=== PATIENT | female | born 1965 | race Two or more races ===

== ENCOUNTER 2024-08-14 15:05 | Inpatient (IN) | payer MEDICAID, OTHER ==
[2024-08-14] VITALS (11 sets, daily range): BP systolic 106–143; BP diastolic 46–70; PULSE 87–109; RESP 12–20; TEMP 97.8–98.3; O2SAT 93–99
[~2024-08-14] VITALS: Ht 152.4 cm; Wt 72.7 kg
--- NOTE | 2024-08-14 15:21 | ED.PDOC ---
History of Present Illness HPI Comments 59F is vincentian speaking only,was BIBA by transfering from [facility] ordered by Doctor Calle for the c/c of CP. EMS report the pt going into the ER of [facility] at 930 this morning w/ the c/c of epigastric pain w/ N/V/D. The reason for the transfer was because the pt's seconds troponine was elevated but w/ no elevation in the EKG. Pt was given morphine before being sent out of [facility]. Pt's BS was 377, BP was 169/92 and a HR of 92. Pt is still complaining of epigastric pain, 02/18. PMHx of DM. Denies chills, fever, SOB or no other associated symptoms, modifiers, recent injuries or sick contacts at this time. Chief Complaint: STEMI Time Seen by MD: 15:15 Reviewed Notes: Nurses Notes, Medications, Allergies Information Source: Patient Mode of Arrival: EMS Severity: Moderate Timing: Minutes Duration: Since onset, Minutes Prehospital treatment: None Past Medical History PAST MEDICAL HISTORY: DM Surgical History: Denies all surgeries BRANCH CHIEF History: No Pertinent BRANCH CHIEF History Family History Family History: Reviewed,noncontributory to illness, Unknown Social History Smoker: Non-Smoker Alcohol: Denies ETOH Use Drugs: Denies Drug Use Lives In: Home Constitutional: denies: chills, diaphoresis, fatigue, fever, malaise, sweats, weakness, others EENTM: denies: blurred vision, double vision, ear bleeding, ear discharge, ear drainage, ear pain, ear ringing, eye pain, eye redness, hearing loss, mouth pain, mouth swelling, nasal discharge, nose bleeding, nose congestion, nose pain, photophobia, tearing, throat pain, throat swelling, voice changes, others Respiratory: denies: cough, hemoptysis, orthopnea, SOB at rest, shortness of breath, SOB with excertion, stridor, wheezing, others Cardiovascular: reports: chest pain; denies: dizzy spells, diaphoresis, Dyspnea on exertion, edema, irregular heart beat, left arm pain, lightheadedness, palpitations, PND, syncope, others Gastrointestinal: reports: diarrhea, nausea, vomiting; denies: abdomen distended, abdominal pain, blood streaked bowels, constipated, dysphagia, difficulty swallowing, hematemesis, melena, poor appetite, poor fluid intake, rectal bleeding, rectal pain, others Genitourinary: denies: abnormal vagina bleeding, burning, dyspareunia, dysuria, flank pain, frequency, hematuria, incontinence, pain, , vagina discharge, urgency, others Neurological: denies: dizziness, fainting, headache, left sided numbness, left sided weakness, numbness, paresthesia, pre-existing deficit, right sided numbness, right sided weakness, seizure, speech problems, tingling, tremors, weakness, others Musculoskeletal: denies: back pain, gout, joint pain, joint swelling, muscle pain, muscle stiffness, neck pain, others Integumetry: denies: bruises, change in color, change in hair/nails, dryness, laceration, lesions, lumps, rash, wounds, others Allergic/Immunocompromised: denies: Difficulty Healing, Frequent Infections, Hives, Itching, others Hematologic/Lymphatic: denies: anemia, blood clots, easy bleeding, easy bruising, swollen glands, others Endocrine: denies: excessive hunger, excessive sweating, excessive thirst, excessive urination, flushing, intolerance to cold, intolerance to heat, unexplained weight gain, unexplained weight loss, others Psychiatric: denies: anxiety, bipolar disorder, depression, hopeless, panic disorder, schizophrenia, sleepless, suicidal, others All Other Systems: Reviewed and Negative Physical Exam General Appearance: Moderate Distress, Normal HEENT: Normal ENT Inspection, Pharynx Normal, TMs Normal Neck: Full Range of Motion, Non-Tender, Normal, Normal Inspection Respiratory: Chest Non-Tender, Lungs Clear, No Accessory Muscle Use, No Respiratory Distress, Normal Breath Sounds Cardiovascular: No Edema, No JVD, No Murmur, No Gallop, Normal Peripheral Pulses, Regular Rate/Rhythm Breast Exam: Deferred Gastrointestinal: No Organomegaly, Non Tender, No Pulsatile Mass, Normal Bowel Sounds, Soft Genitalia: Deferred Pelvic: Deferred Rectal: Deferred Extremities: No calf tenderness, Normal capillary refill, Normal inspection, Normal range of motion, Non-tender, No pedal edema Musculoskeletal : Apperance: Normal Neurologic: Alert, car tester II-XII nml as Tested, No Motor Deficits, Normal Affect, Normal Mood, No Sensory Deficits Cerebellar Function: NOT DONE Reflexes: NOT DONE Skin: Dry, Normal Color, Warm Peripheral Pulses: 3+ Radial (R), 3+ Radial (L) Lymphatic: No Adenopathy Was a procedure done? Was a procedure done?: No Differential Dx Considerations may include: Chest pain Electrolyte imbalance X-Ray, Labs, Meds, VS Patient alert. Complaining of chest pain. Was transferred from [facility]. Vitals stable. She is on heparin. EKG does show changes. Spoke with Cardiology. She will be taken to laborer cook house. Explained to the patient. Continue monitoring. Time of 1ST Reevaluation: 15:45 Reevaluation 1ST: Unchanged Patient Education/Counseling: Diagnosis, Treatment, Prognosis Family Education/Counseling: No Family Present Departure 1 Departure Time of Disposition: 15:23 Impression: Primary Impression: STEMI (ST elevation myocardial infarction) Qualified Codes: I21.3 - ST elevation (STEMI) myocardial infarction of unspecified site Disposition: ADMITTED INPATIENT Admit to: Med Surg Condition: Guarded Critical Care Note Critical Care Time?: Yes (45 min-critical care time only) Stability Stability form required: No Heart Score Heart Score: Heart Score Response (Comments) Value History Highly Suspicious [address]-Deviation 2 Age 45-64 1 Risk Factors >3 or Hx ASHD 2 Troponin N/A 0 Total 7 I personally scribed for PRABHU PERKINS MD ([email or web address]) on 08/14/24 at 15:21. Electronically submitted by Christopher Sanchez ([email or web address]). PRABHU PERKINS MD Aug 14, 2024 15:21
[2024-08-14] MEDS ORDERED: MORPHINE SULFATE INJ 2 MG/ml SYRG IV PRN (15:30)
[2024-08-14] MEDS ORDERED: ASPirin 81 mg TAB PO ONE (15:30)
[2024-08-14] MEDS ORDERED: ACETAMINOPHEN 325 MG TAB PO PRN ×2 (15:30→17:30)
[2024-08-14] MEDS ORDERED: NITROGLYCERIN 0.4 MG SL TAB SL PRN ×2 (15:30→17:30)
[2024-08-14] MEDS: VERAPAMIL 2.5MG/ML INJ 2ML VIAL IV ONE (15:36)
[2024-08-14] MEDS: ANGIOMAX 250 MG VIAL IV ONE ×2 (15:36→16:56)
[2024-08-14] MEDS: HEPARIN SODIUM (PORCINE) 5000 UNITS/ML 1ML VIAL ONE (15:36)
[2024-08-14] MEDS: fentaNYL CITRATE 100 MCG/2 ML VL ONE (15:36)
--- NOTE | 2024-08-14 15:36 | DVHHP2 ---
History of Present Illness Reason for Visit: STEMI History of Present Illness This is a 59-year-old female with no medical history presents to ED with chief complaint of 8/10 chest pain with radiation down her arm and jaw numbness that started yesterday progressively worse today. The patient denied recent injury or trauma to her chest. The patient had no previous symptoms of this in the past, nor any cardiac workup. She reports otherwise healthy individual. The patient will be admitted under hospitalist care to the telemetry unit for continuous monitoring, may be upgraded to ICU if unstable. The patient denies fever, chills, headache, dizziness, palpitation, shortness of breath, nausea, vomiting, abdominal pain, diarrhea, constipation and other associated symptoms. The plan has been discussed with the patient and primary RN in which all questions concerns have been addressed. Past Surgical History: Cholecystectomy Family History: None Smoke: No ALCOHOL: none Drugs: None Lives: with Family Domestic Violence: Neg Review of Systems Cardiovascular: Chest Pain Allergies: Coded Allergies: NO KNOWN ALLERGIES (Unverified , 08/14/24) Exam Vital Signs Vital Signs Date Time Temp Pulse Resp B/P (MAP) Pulse Ox O2 Delivery O2 Flow Rate FiO2 08/14/24 15:24 97.8 12 94 157/84 (108) 94 97.8 General Appearance: Alert, Oriented X3, Cooperative, mild distress HEENT: Atraumatic, PERRLA, Mucous membr. moist/pink Respiratory: Clear to auscultation, Normal air movement Cardiovascular: Normal S1, Normal S2, No murmurs Abdominal: Normal bowel sounds, Soft, No tenderness, No hepatospenomegaly, No masses Extremities: No clubbing, No cyanosis, No edema, Normal pulses, No tenderness/swelling Skin: No rashes, No breakdown Neuro: Normal gait, Normal speech, Strength at 5/5 X4 ext, Normal tone, S ensation intact, Cranial nerves 3-12 NL, Reflexes 2+ Psych/Mental Status: Mental status NL, Mood NL Labs/Xrays ORDERING PHYSICIAN: PRABHU PERKINS MD PROCEDURE(s): CXRP - CHEST PORTABLE REASON: sob ORDER NUMBER(s): [id number], ACCESSION NUMBER(s): [id number] CHEST RADIOGRAPH Indication: sob Technique: Single frontal view of the chest was obtained Comparison: None FINDINGS: Lines and Tubes: None Lungs: No focal consolidation. Pleura: No effusion. No pneumothorax. Cardiomediastinal contours: Unremarkable Bones: No acute osseous abnormality. IMPRESSION: No acute cardiopulmonary disease. 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 Riley Reconcile home meds DVT prophylaxis PUD prophylaxis Labs in a.m. Discussed plan of care with the patient and primary RN in which all questions concerns have been addressed Plan discussed with: Patient My Orders Orders - WILLARD CHOWDARY OPTOMETRY DOCTOR Procedure Category Date Status Time Aspirin Tablet PHA 08/15/24 Transmitted 10:00 Admit ADMIT 08/14/24 Transmitted 15:27 0.9% Ns 1000 Ml PHA 08/14/24 Transmitted 15:30 Ondansetron Hcl PHA 08/14/24 Transmitted (Zofran) 15:30 Npo (Nothing By DIET 08/14/24 Transmitted Mouth) Diet Dinner Condition: Serious JUNIOR 08/14/24 Transmitted 15:27 Acetaminophen Tablet PHA 08/14/24 Transmitted (Tylenol Tablet) 15:30 Bedrest With Bathroom JUNIOR 08/14/24 Transmitted Privileg 15:27 Nitroglycerin PHA 08/14/24 Transmitted Sublingual (Ntrostat 15:30 Morphine Sulfate PHA 08/14/24 Transmitted Injection 15:30 Stat Ekg For Chest JUNIOR 08/14/24 Transmitted Pain 15:27 Notify Md Of Changes JUNIOR 08/14/24 Transmitted From Base 15:27 Product Advisor For JUNIOR 08/14/24 Transmitted 24 Hours 15:27 Emergency Dysrhythmia JUNIOR 4/5/25 Transmitted Protocol 15:27 Rhythm Strips Once JUNIOR 08/14/24 Transmitted Every Shift 15:27 Oxygen By Nasal RT 08/14/24 Transmitted Cannula 15:27 Date of Service: Aug 14, 2024 Billing Provider: WILLARD CHOWDARY Common Visit Codes: [id number] INP/OBS CARE (HIGH) WILLARD CHOWDARY Aug 14, 2024 15:36
[2024-08-14] MEDS: IODIXANOL 320MG/ML 100ML BTL IV ONE ×2 (15:37→16:38)
[2024-08-14] MEDS: SODIUM CHL 0.9% 50 ML ONE ×3 (15:37→16:57)
[2024-08-14] MEDS: LIDOCAINE 2%HCL (LOCAL ANESTH.) INJ 20ML MDV ONE (15:37)
[2024-08-14] MEDS: HEPARIN IN NS 1000Units/500mL 1,500 ML ONE (15:37)
[2024-08-14] MEDS: MIDAZOLAM HCL 2MG/2ML 2ml VIAL (1mg/ml) ONE (15:37)
--- NOTE | 2024-08-14 15:52 | DVH ---
CHEST RADIOGRAPH Indication: sob Technique: Single frontal view of the chest was obtained Comparison: None FINDINGS: Lines and Tubes: None Lungs: No focal consolidation. Pleura: No effusion. No pneumothorax. Cardiomediastinal contours: Unremarkable Bones: No acute osseous abnormality. IMPRESSION: No acute cardiopulmonary disease.
[2024-08-14 15:54] LABS: Hemoglobin 17.5 g/dL (12.2-16.2); Mean Corpuscular Hemoglobin 29.7 pg (28.0-32.0); White Blood Cell 18.3 10^3/uL (4.4-10.8)
[2024-08-14 15:55] LABS: Hematocrit 53.5 % (36.0-46.0); Mean Corpuscular Hgb Conc. 32.8 g/dL (32.0-36.0); Mean Corpuscular Volume 90.6 fL (80.0-100.0); Platelet Count (auto) 269 10^3/uL (140-450); Red Cell Distribution Width 13.2 % (11.8-14.3)
[2024-08-14 15:56] LABS: Basophils % (manual) 0 (0.0-2.0); Blast Cells 0; Eosinophils % (manual) 0 (0-7); Metamyelocytes % 0; Myelocytes % 0; Promyelocytes % 0; Reactive Lymphocytes 0
[2024-08-14 15:58] LABS: Anion Gap 22 (5-15); BUN/Creatinine Ratio 14.8 (10.0-20.0); Blood Urea Nitrogen 12 mg/dL (9-23); Calcium 9.9 mg/dL (8.7-10.4); Chloride 100 mmol/L (98-107); Magnesium 2.1 mg/dL (1.6-2.6); Potassium 4.2 mmol/L (3.5-5.1); Sodium 137 mmol/L (136-145)
[2024-08-14 15:59] LABS: Bilirubin, Total 0.8 mg/dL (0.2-1.0)
[2024-08-14 16:09] LABS: INR 1.18 (0.9-1.15); Prothrombin Time 12.3 sec (9.3-11.8)
[2024-08-14] MEDS: EPTIFIBATIDE INJ (2MG/ML) 10ML VIAL IV ONE (16:14)
[2024-08-14] MEDS: niCARdipine 25 MG/10 ML VIAL IV ONE (16:14)
[2024-08-14 16:24] LABS: Alanine Aminotransferase 56 U/L (7-40); Albumin 4.9 g/dL (3.2-4.8); Alkaline Phosphatase 128 U/L (46-116); Aspartate Aminotransferase 124 U/L (13-40); Carbon Dioxide 15 mmol/L (20-31); Partial Thromboplastin Time 87.9 SEC (24.5-34.5); Total Protein 8.3 g/dL (5.7-8.2)
[2024-08-14 16:25] LABS: Glucose 402 mg/dL (74-106)
[2024-08-14 16:52] LABS: Band Neutrophils % (manual) 2; Large Platelets FEW; Lymphocytes % (manual) 2 (10.0-50.0); Monocytes % (manual) 4 (0-12); Platelet Estimate Adequa
[2024-08-14] MEDS: CLOPIDOGREL BISULFATE 75 MG TAB ONE ×2 (17:02→17:11)
[2024-08-14] MEDS ORDERED: ASPirin 325 MG TAB PO ONE (17:30)
[2024-08-14] MEDS ORDERED: CLOPIDOGREL BISULFATE 75 MG TAB PO ONE (17:30)
[2024-08-14] MEDS ORDERED: DEXTROSE (50%) 50ML SYRG IV PRN (17:45)
[2024-08-14] MEDS ORDERED: InsuLIN REG 1unit/0.01ml Soln (100units/ml) SC SCH (18:00)
[2024-08-14 18:06] LABS: Basophils # (auto) 0 10 ^3/uL (0-0.2); Basophils % (auto) 0.2 % (0.0-2.0); Eosinophils # (auto) 0 10 ^3/uL (0-0.8); Hematocrit 51.8 % (36.0-46.0); Hemoglobin 17.1 g/dL (12.2-16.2); Mean Corpuscular Hemoglobin 30.4 pg (28.0-32.0); Mean Corpuscular Volume 92.2 fL (80.0-100.0); Monocytes # (auto) 0.9 10 ^3/uL (0-1.3); Monocytes % (auto) 4.9 % (0.0-12.0); Neutrophils # (auto) 17.5 10 ^3/uL (1.6-8.6); Neutrophils % (auto) 89.9 % (37.0-80.0); Platelet Count (auto) 250 10^3/uL (140-450); Red Blood Cells 5.61 10^6/uL (4.0-5.20); Red Cell Distribution Width 13.6 % (11.8-14.3); White Blood Cell 19.5 10^3/uL (4.4-10.8)
[2024-08-14 18:32] LABS: Albumin 4.7 g/dL (3.2-4.8); Anion Gap 19 (5-15); BUN/Creatinine Ratio 14.1 (10.0-20.0); Blood Urea Nitrogen 13 mg/dL (9-23); Calcium 9.6 mg/dL (8.7-10.4); Chloride 100 mmol/L (98-107); Potassium 4.2 mmol/L (3.5-5.1); Triglycerides 61 mg/dL (< 150)
[2024-08-14 18:33] LABS: Bilirubin, Total 0.6 mg/dL (0.2-1.0)
[2024-08-14 18:34] LABS: Alanine Aminotransferase 58 U/L (7-40); Alkaline Phosphatase 126 U/L (46-116); Aspartate Aminotransferase 146 U/L (13-40); Carbon Dioxide 14 mmol/L (20-31); Cholesterol 221 mg/dL (< 200); Glucose 387 mg/dL (74-106); HDL Cholesterol 63 mg/dL (40-59); LDL Cholesterol 149 mg/dL (< 100); Sodium 133 mmol/L (136-145)
--- NOTE | 2024-08-14 18:44 | DVHOP ---
DATE OF SURGERY: 08/14/2024 TECHNIQUE PERFORMED: * Code STEMI. * Insertion of a 6-Beninese arterial line from the right femoral artery under fluoroscopy. * Left coronary angiography. * Mechanical thrombectomy of the left anterior descending artery and diagonal artery with Everton catheter. * Balloon angioplasty of the diagonal artery with a 2.5 x 10 mm length semi-compliant balloon. * Stenting and angioplasty of the large diagonal artery with a 2.75 x 12 mm length Lottie [place] stent of [employer] and measured stent up to 2.85 mm in size. * Balloon angioplasty of the left anterior descending artery with 2.5 x 12 mm length semi-compliant balloon in mid artery up to 2.75 mm in size. * Intravascular ultrasound of the left main and also of the left anterior descending artery. * Intraarterial administration of the Integrilin 10 mL bolus. * Right iliofemoral artery angiography. * Arteriotomy, Angio-Seal of the right femoral artery and the management of conscious sedation. COMPLICATIONS: None. ASSISTANTS: Assisted by Marques. Other assistants are Pita Zaragoza, and Lilia. INDICATIONS: The patient has an acute anterior wall myocardial infarction, code STEMI. DESCRIPTION OF PROCEDURE: Risks, benefits all have been explained to the patient, who was brought to stucco laborer. A 6-Beninese arterial line was placed in a standard manner. The patient was given IV Versed and fentanyl. XB 3.0, 6-Beninese guiding catheter was passed. Runthrough wire was passed, which went into the diagonal artery and mechanical thrombectomy was done with the help of the Everton catheter. Subsequently, we have done the angiography and diagonal artery is open, left anterior descending artery is now open. Subsequently, we also put a wire in the [place] left anterior descending artery. The wire also remained also in the diagonal artery. Subsequently, we put a balloon 2.5 x 10 mm length semi-compliant balloon, inflated in the diagonal artery, taken up to the 17 atmospheres and subsequently balloon was deflated and now we have put a stent, a 2.75 x 12 mm length Lottie [place] drug-eluting stent of [employer] and has been deployed from the origin of the diagonal artery and also slightly involving the left anterior descending artery and stent had been deployed a total of 17 atmospheres. Stent size was made up to 2.85 mm in size, inflated for 31 seconds, subsequently for 15 seconds. Balloon had been discontinued. Subsequently, now we have also noted at the left anterior descending artery the site of the bifurcation had been pinched, so now we have put a balloon in the left anterior descending artery and have opened up with a 2.5 x 12 mm length, semi-compliant balloon and inflated over there for about 15 seconds. The size of the artery was made to 2.75 mm in size. Balloon deflated, balloon had been discontinued. Angiography done. Result was satisfactory. Subsequently, we also have now done intravascular ultrasound. Intravascular ultrasound was done and which has confirmed that there is no dissection, there is no critical stenosis in left anterior descending artery and the lumen is open and stenosis in the left anterior descending artery is in the range of only 20%. Now, we have taken both the wire and we did angiography. Result is satisfactory without any complication. Now, subsequently we also did a right iliofemoral artery angiography, arteriotomy, Angio-Seal also done. Prior to doing this one, we have given her 10 mL of Integrilin bolus also and the patient is now completely symptom free, hemodynamically stable. CONCLUSION: * Prior to performing the procedure, the left anterior descending artery was 100% acutely occluded at its mid region, MOE grade 0 flow. Post-procedure, MOE grade 3 flow. * Diagonal artery was 100% blocked. It had MOE grade flow. Post-procedure, MOE grade 3 flow, residual stenosis is 0%. The stent is widely open. * The [place] left anterior descending artery was 100% blocked prior to performing the procedure, MOE grade 0 flow. Post-procedure, MOE grade 3 flow and residual stenosis is 20%. * No spasm, no dissection, no thrombosis. Procedure went well. Please also note that the right coronary artery is a very large dominant artery. PLAN OF ACTION: Advised for the Plavix 600 mg loading dose, aspirin, beta-juan, cholesterol-reducing medicine and control of blood sugar. Jaime Calle MD MP/JESUS/DELMI TID: [id number] RECEIPT: [id number] MTD
--- NOTE | 2024-08-14 19:18 | DVHOP ---
DATE OF SURGERY: 08/14/2024 TECHNIQUE PERFORMED: * Code STEMI. * Insertion of a 6-Finnish arterial line in the right femoral artery under fluoroscopy. * Left heart catheterization. * Left ventriculogram. * [place] selective left and right coronary angiography. COMPLICATIONS: None. ASSISTANTS: Assisted by Marques. Other assistants are Mila Lema, and Lilia. INDICATIONS: The patient has an acute anterior wall myocardial infarction. The patient has been transferred from [facility] in [place], [place] because the troponin was quite high, patient having severe epigastric pain. Procedure was eventually discussed. DESCRIPTION OF PROCEDURE: In a standard manner, the patient had been explained the indications, risks, benefits and alternatives of treatment and has been brought over here. The patient's right groin was shaved and was cleaned with soap and Betadine. A 6-Finnish arterial line had been placed under fluoroscopy in a standard manner. Subsequently, we have put a JR4 catheter and the right coronary angio done. Subsequently, at the end of the procedure, we also did a left heart catheterization and left ventriculogram. We have also done a left coronary angiography with the help of the XB 3.0, 6-Finnish guiding catheter. IMPRESSION: * There is a normal left main. * Left anterior descending artery 100% occluded at its mid region. MOE grade 0 flow. Diagonal artery also has been absent. * The patient's circumflex obtuse marginal artery is a moderate size, mild stenosis is noted in the distal circumflex artery. * The right coronary artery is a large luminal artery. Posterior descending artery also has underlying 50% narrowing at its origin. * Ejection fraction 55%. There is some hypokinesis of the entire anterior apical wall. PLAN OF ACTION: At this time, the patient is advised to undergo the intervention on the left anterior descending artery. Jaime Calle MD MP/ED/CURTIS TID: [id number] RECEIPT: [id number] MTDD
[2024-08-14] MEDS: ONDANSETRON HCL 4 MG/2 ML VIAL IV PRN (19:58)
[2024-08-14] MEDS: HYDROcodone-ACET 7.5/325MG TAB PO ONE (20:45)
[2024-08-14] MEDS: ACCU-CHEK COMFORT CURVE STRIP VI SCH (20:52)
[2024-08-14] MEDS: SODIUM CHLORIDE 0.9% 1,000 ML IV SCH (20:52)
[2024-08-14] MEDS: SODIUM CHLOR 0.9% PF (SALINE LOCK) 10ML VIAL/SYR IV SCH (20:53)
[2024-08-14] MEDS: ATORVASTATIN 20 MG TAB PO SCH (21:10)
[2024-08-14] MEDS: INSULIN LANTUS (GLARGINE) 1 /0.01ml (100units/ml) SC SCH (21:12)
[2024-08-14] MEDS: INSULIN LISPRO (HUMAN) 100 UNITS/ML ML SC SCH (21:16)
[2024-08-14 21:17] LABS: Hematocrit 47.3 % (36.0-46.0); Hemoglobin 15.9 g/dL (12.2-16.2)
[2024-08-14] MEDS: METOPROLOL TARTRATE 25 MG TAB PO SCH (21:23)
[2024-08-14 21:33] LABS: INR 1.18 (0.9-1.15); Partial Thromboplastin Time 38.7 SEC (24.5-34.5); Prothrombin Time 12.3 sec (9.3-11.8)
--- NOTE | 2024-08-14 23:52 | DVHINCON2 ---
Date of service: Aug 14, 2024 Referring Physician Julian Reason for Consultation STEMI History of Present Illness This is a 59 year old Greek speaking female with a PMH of pre DM who was transferred to here by ambulance from [facility] for STEMI. Patient initially had complaints of upper abdominal pain with nausea and vomiting that began 2 days ago. Troponin was elevated x 2. EKG from [facility] showed NSR at 89 bpm, ST deviation and moderate T-wave abnormality, consider lateral ischemia. Chest x-ray showed NAD. Patient on heparin. Patient will be emergently taken to the [facility]. Allergies: Coded Allergies: NO KNOWN ALLERGIES (Unverified , 08/14/24) Current Medications Current Medications Medications (Trade) Dose Ordered Sig/John Route PRN Reason Start Time Stop Time Status Last Admin Aspirin 81 mg DAILY PO 08/15/24 10:00 08/14/24 17:41 DC Sodium Chloride 1,000 ml @ 100 mls/hr Q10H IV 08/14/24 15:30 08/14/24 20:52 Ondansetron HCl (Zofran) 4 mg Q4HP PRN IV NAUSEA / VOMITING 08/14/24 15:30 08/14/24 19:58 Acetaminophen (Tylenol Tablet) 650 mg Q6HP PRN PO PAIN SCALE 1-3 OR TEMP>100.4 08/14/24 15:30 08/14/24 17:41 DC Nitroglycerin (Ntrostat Sublingual) 0.4 mg Q5MINP PRN SL FOR CHEST PAIN 08/14/24 15:30 08/14/24 17:41 DC Morphine Sulfate 2 mg Q30M PRN IV FOR CHEST PAIN 08/14/24 15:30 08/14/24 17:41 DC Sodium Chloride (Saline Lock Ns) 10 ml Q8HR IV 08/14/24 22:00 08/14/24 20:53 Nitroglycerin (Ntrostat Sublingual) 0.4 mg Q5M PRN SL FOR CHEST PAIN 08/14/24 17:30 Metoprolol Tartrate (Lopressor Tablet) 25 mg BID PO 08/14/24 22:00 08/14/24 21:23 Aspirin 81 mg DAILY PO 08/16/24 10:00 Clopidogrel Bisulfate (Plavix) 75 mg DAILY PO 08/16/24 10:00 Enalapril Maleate (Vasotec Tablet) 2.5 mg DAILY PO 08/15/24 10:00 Atorvastatin Calcium (Lipitor) 80 mg HS PO 08/14/24 22:00 08/14/24 21:10 Acetaminophen (Tylenol Tablet) 650 mg Q6HP PRN PO MILD PAIN (1-3 PAIN SCALE) 08/14/24 17:30 Diagnostic Test (Pha) (Accu-Chek Comfort Curve T) 1 strip Q6HR 08/14/24 18:00 08/14/24 20:52 Insulin Human Regular (InsuLIN R) Q6HR SC 08/14/24 18:00 08/14/24 18:23 DC Dextrose 50 ml UD PRN IV Blood Sugar LESS THAN 60 08/14/24 17:45 Insulin Human Lispro (HumaLOG) 4 units AC SC 08/15/24 07:00 Insulin Glargine (Lantus) 10 units HS SC 08/14/24 22:00 08/14/24 21:12 Insulin Human Lispro (HumaLOG) Please change to Humalog Q6HR [place] 08/14/24 18:30 08/14/24 21:16 Review of Systems Constitutional: denies: chills, diaphoresis, fatigue, fever, malaise, sweats, weakness, others EENTM: denies: blurred vision, double vision, ear bleeding, ear discharge, ear drainage, ear pain, ear ringing, eye pain, eye redness, hearing loss, mouth pain, mouth swelling, nasal discharge, nose bleeding, nose congestion, nose pain, photophobia, tearing, throat pain, throat swelling, voice changes, others Respiratory: denies: cough, hemoptysis, orthopnea, SOB at rest, shortness of breath, SOB with excertion, stridor, wheezing, others Cardiovascular: reports: chest pain; denies: dizzy spells, diaphoresis, Dyspnea on exertion, edema, irregular heart beat, left arm pain, lightheadedness, palpitations, PND, syncope, others Gastrointestinal: reports: diarrhea, nausea, vomiting; denies: abdomen distended, abdominal pain, blood streaked bowels, constipated, dysphagia, difficulty swallowing, hematemesis, melena, poor appetite, poor fluid intake, rectal bleeding, rectal pain, others Genitourinary: denies: abnormal vagina bleeding, burning, dyspareunia, dysuria, flank pain, frequency, hematuria, incontinence, pain, , vagina discharge, urgency, others Neurological: denies: dizziness, fainting, headache, left sided numbness, left sided weakness, numbness, paresthesia, pre-existing deficit, right sided numbness, right sided weakness, seizure, speech problems, tingling, tremors, weakness, others Musculoskeletal: denies: back pain, gout, joint pain, joint swelling, muscle pain, muscle stiffness, neck pain, others Integumetry: denies: bruises, change in color, change in hair/nails, dryness, laceration, lesions, lumps, rash, wounds, others Allergic/Immunocompromised: denies: Difficulty Healing, Frequent Infections, Hives, Itching, others Hematologic/Lymphatic: denies: anemia, blood clots, easy bleeding, easy bruising, swollen glands, others Endocrine: denies: excessive hunger, excessive sweating, excessive thirst, excessive urination, flushing, intolerance to cold, intolerance to heat, unexplained weight gain, unexplained weight loss, others Psychiatric: denies: anxiety, bipolar disorder, depression, hopeless, panic disorder, schizophrenia, sleepless, suicidal, others All Other Systems: Reviewed and Negative Vital Signs Vital Signs Date Time Temp Pulse Resp B/P (MAP) Pulse Ox O2 Delivery O2 Flow Rate FiO2 08/14/24 21:23 107 132/65 08/14/24 18:35 98.3 18 93 98.3 08/14/24 15:29 Room Air* 0 21 Physical Exam GENERAL: Alert and oriented x 3. No acute distress. EYES: PERRL, EOMI. Anicteric. HENT: Moist mucous membranes. LUNGS: Clear to auscultation bilaterally. CARDIOVASCULAR: Regular rate and rhythm. ABDOMEN: Soft, nontender and nondistended. EXTREMITIES: No edema. NEUROLOGIC: No focal neurological deficits. SKIN: Warm, dry. Labs/Diagnostic Data Labs Test 08/14/24 21:03 08/14/24 20:55 08/14/24 17:54 08/14/24 15:16 Range/Units Hemoglobin 15.9 12.2-16.2 g/dL Hematocrit 47.3 H 36.0-46.0 % Prothrombin Time 12.3 H 9.3-11.8 sec Prothrombin Time INR 1.18 H 0.9-1.15 Activated Partial Thromboplast Time 38.7 H 24.5-34.5 SEC POC Glucose 438 *H 70-106 mg/dl White Blood Count 19.5 H 4.4-10.8 10^3/uL Red Blood Count 5.61 H 4.0-5.20 10^6/uL Mean Corpuscular Volume 92.2 80.0-100.0 fL Mean Corpuscular Hemoglobin 30.4 28.0-32.0 pg Mean Corpuscular Hemoglobin Concent 33.0 32.0-36.0 g/dL Red Cell Distribution Width 13.6 11.8-14.3 % Platelet Count 250 140-450 10^3/uL Mean Platelet Volume 9.0 6.9-10.8 fL Neutrophils (%) (Auto) 89.9 H 37.0-80.0 % Lymphocytes (%) (Auto) 5.0 L 10.0-50.0 % Monocytes (%) (Auto) 4.9 0.0-12.0 % Eosinophils (%) (Auto) 0.0 0.0-7.0 % Basophils (%) (Auto) 0.2 0.0-2.0 % Neutrophils # (Auto) 17.5 H 1.6-8.6 10 ^3/uL Lymphocytes # (Auto) 1.0 0.4-5.4 10 ^3/uL Monocytes # (Auto) 0.9 0-1.3 10 ^3/uL Eosinophils # (Auto) 0 0-0.8 10 ^3/uL Basophils # (Auto) 0 0-0.2 10 ^3/uL Nucleated Red Blood Cells 0.0 % Sodium Level 133 L 136-145 mmol/L Potassium Level 4.2 3.5-5.1 mmol/L Chloride Level 100 98-107 mmol/L Carbon Dioxide Level 14 L 20-31 mmol/L Anion Gap 19 H 5-15 Blood Urea Nitrogen 13 9-23 mg/dL Creatinine 0.92 0.550-1.02 mg/dL Glomerular Filtration Rate Calc 71 >90 mL/min BUN/Creatinine Ratio 14.1 10.0-20.0 Serum Glucose 387 H 74-106 mg/dL Hemoglobin A1c > 14.0 H <5.7 % A1C Calcium Level 9.6 8.7-10.4 mg/dL Magnesium Level 2.0 1.6-2.6 mg/dL Total Bilirubin 0.6 0.2-1.0 mg/dL Aspartate Amino Transferase (AST) 146 H 13-40 U/L Alanine Aminotransferase (ALT) 58 H 7-40 U/L Alkaline Phosphatase 126 H 46-116 U/L Troponin I High Sensitivity 82399 *H </=34 ng/L Total Protein 8.0 5.7-8.2 g/dL Albumin 4.7 3.2-4.8 g/dL Triglycerides Level 61 < 150 mg/dL Cholesterol Level 221 H < 200 mg/dL LDL Cholesterol 149 H < 100 mg/dL HDL Cholesterol 63 H 40-59 mg/dL Differential Total Cells Counted 100.0 100 Neutrophils % (Manual) 92 H 37.0-80.0 Band Neutrophils % (Manual) 2 Lymphocytes % (Manual) 2 L 10.0-50.0 Monocytes % (Manual) 4 0-12 Eosinophils % (Manual) 0 0-7 Basophils % (Manual) 0 0.0-2.0 Metamyelocytes % (manual) 0 Myelocytes % (Manual) 0 Promyelocytes % (Manual) 0 Blast Cells % (Manual) 0 Reactive Lymphocytes 0 Platelet Estimate [place] Large Platelets Few Assessment STEMI. Chest pain. CAD. Pulmonary arterial hypertension. Abdominal pain with nausea and vomiting. IDDM. Plan/Recommendation I agree with your ongoing assessment and care of plan. Telemetry reviewed. Left heart catheterization. Risks and benefits were discussed with the patient. Echocardiogram. Aspirin, Lipitor, Plavix, Metoprolol. Vasotec Nitro SL. Additional plan as per the hospital course. A total of 45 minutes was spent reviewing the patient record, examining the patient, making a diagnostic and therapeutic plan, discussing this plan with medical personnel, following up on diagnostic studies and following the patient for clinical stability excluding any and all procedures. At least 50% of this time was spent in direct, [id number] contact. Plan discussed with: Patient MARIEL MERLOS MD Aug 14, 2024 21:51
[2024-08-15] VITALS (8 sets, daily range): BP systolic 103–137; BP diastolic 50–65; PULSE 89–99; RESP 15–18; TEMP 97.8–99.3; O2SAT 92–97
[2024-08-15] MEDS: INSULIN LISPRO (HUMAN) 100 UNITS/ML ML SC SCH ×3 (07:00→17:11)
[2024-08-15] MEDS ORDERED: ASPirin 81 mg TAB PO SCH (10:00)
[2024-08-15] MEDS: ENALAPRIL MALEATE 2.5 MG TAB PO SCH (10:06)
--- NOTE | 2024-08-15 11:56 | DVHINCON2 ---
Date of service: Aug 15, 2024 History of Present Illness 59yo F w/ hx of preDM, CAD who presented to [facility] for STEMI. Patient had been experiencing nause and ab pain 2 days prior to presentation. Patient underwent thrombectomy of diagonal PTCA of diagonal, stent deployed in diagonal, PTCA of LAD IV US. Since then has been maintained on dual antiplatelet therapy. Patient had significant hyperglycemia upon admission to 400mg/dL. A1c > 14%. No antihyperglycemic pharmacotherapy at home. Past Medical History Problems Medical Problems: (1) STEMI (ST elevation myocardial infarction) Status: Acute Past Surgical History Past Surgical History Medical Problems: (1) STEMI (ST elevation myocardial infarction) Status: Acute Family History: Cardiovascular disease G8 MOTHER Allergies: Coded Allergies: NO KNOWN ALLERGIES (Unverified , 08/14/24) Home Meds No Active Prescriptions or Reported Meds Current Medications Current Medications Medications (Trade) Dose Ordered Sig/John Route PRN Reason Start Time Stop Time Status Last Admin Aspirin 81 mg DAILY PO 08/15/24 10:00 08/14/24 17:41 DC Sodium Chloride 1,000 ml @ 100 mls/hr Q10H IV 08/14/24 15:30 08/15/24 11:40 Ondansetron HCl (Zofran) 4 mg Q4HP PRN IV NAUSEA / VOMITING 08/14/24 15:30 08/14/24 19:58 Acetaminophen (Tylenol Tablet) 650 mg Q6HP PRN PO PAIN SCALE 1-3 OR TEMP>100.4 08/14/24 15:30 08/14/24 17:41 DC Nitroglycerin (Ntrostat Sublingual) 0.4 mg Q5MINP PRN SL FOR CHEST PAIN 08/14/24 15:30 08/14/24 17:41 DC Morphine Sulfate 2 mg Q30M PRN IV FOR CHEST PAIN 08/14/24 15:30 08/14/24 17:41 DC Sodium Chloride (Saline Lock Ns) 10 ml Q8HR IV 08/14/24 22:00 08/15/24 06:15 Nitroglycerin (Ntrostat Sublingual) 0.4 mg Q5M PRN SL FOR CHEST PAIN 08/14/24 17:30 Metoprolol Tartrate (Lopressor Tablet) 25 mg BID PO 08/14/24 22:00 08/15/24 10:07 Aspirin 81 mg DAILY PO 08/16/24 10:00 Clopidogrel Bisulfate (Plavix) 75 mg DAILY PO 08/16/24 10:00 Enalapril Maleate (Vasotec Tablet) 2.5 mg DAILY PO 08/15/24 10:00 08/15/24 10:06 Atorvastatin Calcium (Lipitor) 80 mg HS PO 08/14/24 22:00 08/15/24 11:35 DC 08/14/24 21:10 Acetaminophen (Tylenol Tablet) 650 mg Q6HP PRN PO MILD PAIN (1-3 PAIN SCALE) 08/14/24 17:30 Diagnostic Test (Pha) (Accu-Chek Comfort Curve T) 1 strip Q6HR 08/14/24 18:00 08/15/24 11:40 Insulin Human Regular (InsuLIN R) Q6HR SC 08/14/24 18:00 08/14/24 18:23 DC Dextrose 50 ml UD PRN IV Blood Sugar LESS THAN 60 08/14/24 17:45 Insulin Human Lispro (HumaLOG) 4 units AC SC 08/15/24 07:00 08/15/24 11:44 Insulin Glargine (Lantus) 10 units HS SC 08/14/24 22:00 08/14/24 21:12 Insulin Human Lispro (HumaLOG) Please change to Humalog Q6HR SC 08/14/24 18:30 08/15/24 11:43 Ceftriaxone Sodium 50 ml @ 100 mls/hr DAILY@09 IV 08/15/24 13:00 Atorvastatin Calcium (Lipitor) 40 mg HS PO 08/15/24 22:00 Review of Systems Negative except that which is stated in HPI Vital Signs Vital Signs Date Time Temp Pulse Resp B/P (MAP) Pulse Ox O2 Delivery O2 Flow Rate FiO2 08/15/24 10:07 97 157/62 08/15/24 09:00 98.8 15 93 98.8 08/15/24 08:00 Room Air* 0 21 Physical Exam Gen - no acute distress HEENT - no thyromegaly CV - RRR, no m/r/g Resp - CTAB, no wheezes/crackles Ext - no edema Labs/Diagnostic Data Labs Test 08/15/24 11:09 08/14/24 21:03 08/14/24 17:54 08/14/24 15:16 Range/Units POC Glucose 284 H 70-106 mg/dl Hemoglobin 15.9 12.2-16.2 g/dL Hematocrit 47.3 H 36.0-46.0 % Prothrombin Time 12.3 H 9.3-11.8 sec Prothrombin Time INR 1.18 H 0.9-1.15 Activated Partial Thromboplast Time 38.7 H 24.5-34.5 SEC White Blood Count 19.5 H 4.4-10.8 10^3/uL Red Blood Count 5.61 H 4.0-5.20 10^6/uL Mean Corpuscular Volume 92.2 80.0-100.0 fL Mean Corpuscular Hemoglobin 30.4 28.0-32.0 pg Mean Corpuscular Hemoglobin Concent 33.0 32.0-36.0 g/dL Red Cell Distribution Width 13.6 11.8-14.3 % Platelet Count 250 140-450 10^3/uL Mean Platelet Volume 9.0 6.9-10.8 fL Neutrophils (%) (Auto) 89.9 H 37.0-80.0 % Lymphocytes (%) (Auto) 5.0 L 10.0-50.0 % Monocytes (%) (Auto) 4.9 0.0-12.0 % Eosinophils (%) (Auto) 0.0 0.0-7.0 % Basophils (%) (Auto) 0.2 0.0-2.0 % Neutrophils # (Auto) 17.5 H 1.6-8.6 10 ^3/uL Lymphocytes # (Auto) 1.0 0.4-5.4 10 ^3/uL Monocytes # (Auto) 0.9 0-1.3 10 ^3/uL Eosinophils # (Auto) 0 0-0.8 10 ^3/uL Basophils # (Auto) 0 0-0.2 10 ^3/uL Nucleated Red Blood Cells 0.0 % Sodium Level 133 L 136-145 mmol/L Potassium Level 4.2 3.5-5.1 mmol/L Chloride Level 100 98-107 mmol/L Carbon Dioxide Level 14 L 20-31 mmol/L Anion Gap 19 H 5-15 Blood Urea Nitrogen 13 9-23 mg/dL Creatinine 0.92 0.550-1.02 mg/dL Glomerular Filtration Rate Calc 71 >90 mL/min BUN/Creatinine Ratio 14.1 10.0-20.0 Serum Glucose 387 H 74-106 mg/dL Hemoglobin A1c > 14.0 H <5.7 % A1C Calcium Level 9.6 8.7-10.4 mg/dL Magnesium Level 2.0 1.6-2.6 mg/dL Total Bilirubin 0.6 0.2-1.0 mg/dL Aspartate Amino Transferase (AST) 146 H 13-40 U/L Alanine Aminotransferase (ALT) 58 H 7-40 U/L Alkaline Phosphatase 126 H 46-116 U/L Troponin I High Sensitivity 96937 *H </=34 ng/L Total Protein 8.0 5.7-8.2 g/dL Albumin 4.7 3.2-4.8 g/dL Triglycerides Level 61 < 150 mg/dL Cholesterol Level 221 H < 200 mg/dL LDL Cholesterol 149 H < 100 mg/dL HDL Cholesterol 63 H 40-59 mg/dL Differential Total Cells Counted 100.0 100 Neutrophils % (Manual) 92 H 37.0-80.0 Band Neutrophils % (Manual) 2 Lymphocytes % (Manual) 2 L 10.0-50.0 Monocytes % (Manual) 4 0-12 Eosinophils % (Manual) 0 0-7 Basophils % (Manual) 0 0.0-2.0 Metamyelocytes % (manual) 0 Myelocytes % (Manual) 0 Promyelocytes % (Manual) 0 Blast Cells % (Manual) 0 Reactive Lymphocytes 0 Platelet Estimate [place]qua Large Platelets Few Assessment # Uncontrolled type II DM with hyperglycemia # STEMI # CAD # HTN # HLD - Glargine 12 units bid - Lispro 8 units tidac - High intensity SSI tidac, qhs - POC BG monitoring tidac, qhs - Hypoglycemia protocol - Order A1c Plan discussed with: Patient RUBI BENTLEY MD Aug 15, 2024 11:56
--- NOTE | 2024-08-15 12:10 | DVHPN2 ---
Subjective Patient denies any symptoms Reviewed: Care Plan, H&P, Labs, Medications, Previous Orders Changes from previous H/P or p: No Changes General: Per HPI Cardiovascular: Chest Pain Objective Vitals Vital Signs Date Time Temp Pulse Resp B/P (MAP) Pulse Ox O2 Delivery O2 Flow Rate FiO2 08/15/24 10:07 97 157/62 08/15/24 09:00 98.8 15 93 98.8 08/15/24 08:00 Room Air* 0 21 Intake/Output Intake and Output 08/15/24 07:00 Intake Total 1890 ml Output Total 500 ml Balance 1390 ml Intake Oral 890 ml IV Total 1000 ml Output Urine Total 500 ml General Appearance: Alert, Oriented X3, Cooperative, No acute distress HEENT: Atraumatic, PERRLA Cardiovascular: Normal S1, Normal S2 Abdomen: Normal bowel sounds, Soft, No tenderness, No hepatospenomegaly Genitourinary: No Apparent Abnormalities Musculoskeletal: Normal sensory function, Normal motor function Neuro: Normal gait, Normal speech Skin: Dry, Intact Psych/Mental Status: Mental status NL, Mood NL Medications Current Medications Medications Dose Ordered Sig/John Route Start Time Stop Time Status Last Admin Dose Admin Sodium Chloride 1,000 ml @ 100 mls/hr Q10H IV 08/14/24 15:30 08/15/24 11:40 100 MLS/HR Ondansetron HCl 4 mg Q4HP PRN IV 08/14/24 15:30 08/14/24 19:58 4 MG Sodium Chloride 10 ml Q8HR IV 08/14/24 22:00 08/15/24 06:15 10 ML Nitroglycerin 0.4 mg Q5M PRN SL 08/14/24 17:30 Metoprolol Tartrate 25 mg BID PO 08/14/24 22:00 08/15/24 10:07 25 MG Aspirin 81 mg DAILY PO 08/16/24 10:00 Clopidogrel Bisulfate 75 mg DAILY PO 08/16/24 10:00 Enalapril Maleate 2.5 mg DAILY PO 08/15/24 10:00 08/15/24 10:06 2.5 MG Acetaminophen 650 mg Q6HP PRN PO 08/14/24 17:30 Diagnostic Test (Pha) 1 strip Q6HR 08/14/24 18:00 08/15/24 11:40 1 STRIP Dextrose 50 ml UD PRN IV 08/14/24 17:45 Insulin Human Lispro 4 units AC SC 08/15/24 07:00 08/15/24 11:44 4 UNITS Insulin Glargine 10 units HS SC 08/14/24 22:00 08/14/24 21:12 10 UNITS Insulin Human Lispro Please change to Humalog Q6HR SC 08/14/24 18:30 08/15/24 11:43 12 UNITS Ceftriaxone Sodium 50 ml @ 100 mls/hr DAILY@09 IV 08/15/24 13:00 Atorvastatin Calcium 40 mg HS PO 08/15/24 22:00 Laboratory Results Laboratory Tests 08/14/24 17:54 08/14/24 21:03 Chemistry Test 08/14/24 15:16 08/14/24 17:54 Albumin 4.9 g/dL (3.2-4.8) H 4.7 g/dL (3.2-4.8) Calcium Level 9.9 mg/dL (8.7-10.4) 9.6 mg/dL (8.7-10.4) Magnesium Level 2.1 mg/dL (1.6-2.6) 2.0 mg/dL (1.6-2.6) Total Protein 8.3 g/dL (5.7-8.2) H 8.0 g/dL (5.7-8.2) Coagulation Test 08/14/24 15:16 08/14/24 21:03 Prothrombin Time 12.3 sec (9.3-11.8) H 12.3 sec (9.3-11.8) H Prothrombin Time INR 1.18 (0.9-1.15) H 1.18 (0.9-1.15) H Activated Partial Thromboplast Time 87.9 SEC (24.5-34.5) *H 38.7 SEC (24.5-34.5) H Lipid panel Test 08/14/24 17:54 Cholesterol Level 221 mg/dL (< 200) H HDL Cholesterol 63 mg/dL (40-59) H Triglycerides Level 61 mg/dL (< 150) LFT Test 08/14/24 15:16 08/14/24 17:54 Alanine Aminotransferase (ALT) 56 U/L (7-40) H 58 U/L (7-40) H Alkaline Phosphatase 128 U/L (46-116) H 126 U/L (46-116) H Aspartate Amino Transferase (AST) 124 U/L (13-40) H 146 U/L (13-40) H Total Bilirubin 0.8 mg/dL (0.2-1.0) 0.6 mg/dL (0.2-1.0) HgA1c, TSH Test 08/14/24 17:54 Hemoglobin A1c > 14.0 % A1C (<5.7) H Labs and/or images reviewed: Labs reviewed by me, Image(s) reviewed by me Assessment/Plan Assessment/Plan Impression: -STEMI involving LAD -diabetes mellitus, uncontrolled, medication noncompliance -obesity -leukocytosis, probable sirs -dyslipidemia -primary hypertension Plan: -continue dual antiplatelet therapy with Plavix -continue metoprolol -add statin -continue regular insulin sliding scale, consider adding metformin tomorrow -repeat labs in a.m. Total time spent with patient discussing and formulating plan of care: 35 minutes. This medical document was created using an electronic medical record system with [employer] dictation system. Although this document has been carefully reviewed, there may still be some phonetic and typographical errors. These areas are purely typographical due to imperfections of the software programs, and do not reflect any compromise in the patient's medical care. Plan discussed with: Patient, Other (RN) My Orders Orders - JOSE MARIA CAZARES NP Procedure Category Date Status Time Atorvastatin (Lipitor) PHA 08/15/24 In Process 22:00 Basic Metabolic Panel LAB 08/16/24 Verified 04:00 Complete Blood Count LAB 08/16/24 Verified 04:00 Ceftriaxone 1gm/50ml PHA 08/15/24 In Process D5w (Rocephin) 13:00 Date of Service: Aug 15, 2024 Billing Provider: JOSE MARIA CAZARES NP Common Visit Codes: [id number] INP/OBS CARE(HIGH) JOSE MARIA CAZARES NP Aug 15, 2024 12:10
--- NOTE | 2024-08-15 13:59 | DVHPN2 ---
Progress Note - Dictate Date Seen: Aug 15, 2024 Medical Necessity Reason Pt with a Central, PICC or Fol: No Subjective Patient was seen and evaluated in follow up. Patient is s/p thrombectomy of diagonal PTCA of diagonal, stent deployed in diagonal, PTCA of LAD IV US. Procedure went well. Advised for the Plavix 600 mg loading dose, aspirin, beta- juan, cholesterol-reducing medicine and control of blood sugar. BS are in the 280's. Telemetry reviewed. vital signs Vital Sign Date Time Temp Pulse Resp B/P (MAP) Pulse Ox O2 Delivery O2 Flow Rate FiO2 08/15/24 10:07 97 157/62 08/15/24 09:00 98.8 15 93 98.8 08/15/24 08:00 Room Air* 0 21 Total Intake and Output 08/14/24 08/14/24 08/15/24 15:00 23:00 07:00 Intake Total 240 ml 1650 ml Output Total 500 ml Balance 240 ml 1150 ml medications Current Medications Medications Dose Ordered Sig/John Route Start Time Stop Time Status Last Admin Dose Admin Sodium Chloride 1,000 ml @ 100 mls/hr Q10H IV 08/14/24 15:30 08/15/24 11:40 100 MLS/HR Ondansetron HCl 4 mg Q4HP PRN IV 08/14/24 15:30 08/14/24 19:58 4 MG Sodium Chloride 10 ml Q8HR IV 08/14/24 22:00 08/15/24 06:15 10 ML Nitroglycerin 0.4 mg Q5M PRN SL 08/14/24 17:30 Metoprolol Tartrate 25 mg BID PO 08/14/24 22:00 08/15/24 10:07 25 MG Aspirin 81 mg DAILY PO 08/16/24 10:00 Clopidogrel Bisulfate 75 mg DAILY PO 08/16/24 10:00 Enalapril Maleate 2.5 mg DAILY PO 08/15/24 10:00 08/15/24 10:06 2.5 MG Acetaminophen 650 mg Q6HP PRN PO 08/14/24 17:30 Diagnostic Test (Pha) 1 strip Q6HR 08/14/24 18:00 08/15/24 11:40 1 STRIP Dextrose 50 ml UD PRN IV 08/14/24 17:45 Ceftriaxone Sodium 50 ml @ 100 mls/hr DAILY@09 IV 08/15/24 13:00 Atorvastatin Calcium 40 mg HS PO 08/15/24 22:00 Insulin Glargine 12 units BID SC 08/15/24 12:30 Insulin Human Lispro Please change to Humalog ACHS SC 08/15/24 17:00 Insulin Human Lispro 8 units AC SC 08/15/24 17:00 objective GENERAL: Alert and oriented x 3. No acute distress. EYES: PERRL, EOMI. Anicteric. HENT: Moist mucous membranes. LUNGS: Clear to auscultation bilaterally. CARDIOVASCULAR: Regular rate and rhythm. ABDOMEN: Soft, nontender and nondistended. EXTREMITIES: No edema. NEUROLOGIC: No focal neurological deficits. SKIN: Warm, dry. laboratory and microbiology Laboratory Tests 08/14/24 21:03 08/14/24 17:54 Test 08/14/24 17:54 Range/Units Serum Glucose 387 H 74-106 mg/dL Problem List STEMI. Chest pain. CAD. Pulmonary arterial hypertension. Abdominal pain with nausea and vomiting. IDDM. Assessment/Plan Continued all current supportive medical care. Echocardiogram. Aspirin, Lipitor, Plavix, Metoprolol. IV antibiotics as ordered. Vasotec Nitro SL. Additional plan as per the hospital course. Plan discussed with: Patient MARIEL MERLOS MD Aug 15, 2024 13:08
[2024-08-15] MEDS: cefTRIAXone 1GM/50ML D5W 50 ML IV SCH (14:08)
[2024-08-15] MEDS: INSULIN LANTUS (GLARGINE) 1 /0.01ml (100units/ml) SC SCH (14:17)
[2024-08-15] MEDS: ATORVASTATIN 20 MG TAB PO SCH (21:48)
[2024-08-16] VITALS (9 sets, daily range): BP systolic 102–144; BP diastolic 47–73; PULSE 83–99; RESP 16–19; TEMP 98.2–99.3; O2SAT 93–97
[2024-08-16 06:54] LABS: Basophils # (auto) 0 10 ^3/uL (0-0.2); Basophils % (auto) 0.3 % (0.0-2.0); Eosinophils # (auto) 0.1 10 ^3/uL (0-0.8); Eosinophils % (auto) 0.5 % (0.0-7.0); Hematocrit 38.9 % (36.0-46.0); Hemoglobin 13.3 g/dL (12.2-16.2); Lymphocytes # (auto) 2.4 10 ^3/uL (0.4-5.4); Lymphocytes % (auto) 20.5 % (10.0-50.0); Mean Corpuscular Hemoglobin 30.2 pg (28.0-32.0); Mean Corpuscular Hgb Conc. 34.3 g/dL (32.0-36.0); Monocytes # (auto) 1.4 10 ^3/uL (0-1.3); Neutrophils # (auto) 7.8 10 ^3/uL (1.6-8.6); Neutrophils % (auto) 66.7 % (37.0-80.0); Nucleated Red Blood Cells % 0.1 %; Platelet Count (auto) 210 10^3/uL (140-450); Red Blood Cells 4.42 10^6/uL (4.0-5.20); Red Cell Distribution Width 12.9 % (11.8-14.3); White Blood Cell 11.6 10^3/uL (4.4-10.8)
[2024-08-16 07:04] LABS: Anion Gap 11 (5-15); Carbon Dioxide 21 mmol/L (20-31); Sodium 139 mmol/L (136-145)
[2024-08-16 07:05] LABS: Calcium 9.2 mg/dL (8.7-10.4)
[2024-08-16 07:10] LABS: BUN/Creatinine Ratio 44.2 (10.0-20.0); Blood Urea Nitrogen 23 mg/dL (9-23)
[2024-08-16 07:14] LABS: Chloride 107 mmol/L (98-107); Glucose 154 mg/dL (74-106)
--- NOTE | 2024-08-16 07:21 | ECG ---
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
[2024-08-16] MEDS: ASPirin 81 mg TAB PO SCH (09:17)
[2024-08-16] MEDS: CLOPIDOGREL BISULFATE 75 MG TAB PO SCH (09:18)
--- NOTE | 2024-08-16 09:56 | MEDREC ---
[facility] Intervention Section I [facility] Intervention: Review courses of therapy (PLEASE CONSIDER D/C ANTIBIOTIC IN ABSENCE OF BACTERIAL INFECTION ) MARILUZ JARAMILLO PHARMACIST Aug 16, 2024 09:56
--- NOTE | 2024-08-16 10:08 | DVHPN2 ---
Subjective Patient denies any symptoms Reviewed: Care Plan, H&P, Labs, Medications, Previous Orders Changes from previous H/P or p: No Changes General: Per HPI Cardiovascular: Chest Pain Objective Vitals Vital Signs Date Time Temp Pulse Resp B/P (MAP) Pulse Ox O2 Delivery O2 Flow Rate FiO2 08/16/24 09:18 144/73 08/16/24 09:18 89 08/16/24 08:00 17 95 Room Air* 0 21 08/16/24 05:00 98.2 98.2 Intake/Output Intake and Output 08/16/24 07:00 Intake Total 1800 ml Output Total 250 ml Balance 1550 ml Intake Oral 1750 ml IV Total 50 ml Output Urine Total 250 ml # Voids 1 General Appearance: Alert, Oriented X3, Cooperative, No acute distress HEENT: Atraumatic, PERRLA Cardiovascular: Normal S1, Normal S2 Abdomen: Normal bowel sounds, Soft, No tenderness, No hepatospenomegaly Genitourinary: No Apparent Abnormalities Musculoskeletal: Normal sensory function, Normal motor function Neuro: Normal gait, Normal speech Skin: Dry, Intact Psych/Mental Status: Mental status NL, Mood NL Medications Current Medications Medications Dose Ordered Sig/John Route Start Time Stop Time Status Last Admin Dose Admin Ondansetron HCl 4 mg Q4HP PRN IV 08/14/24 15:30 08/14/24 19:58 4 MG Sodium Chloride 10 ml Q8HR IV 08/14/24 22:00 08/16/24 06:16 10 ML Nitroglycerin 0.4 mg Q5M PRN SL 08/14/24 17:30 Metoprolol Tartrate 25 mg BID PO 08/14/24 22:00 08/16/24 09:18 25 MG Aspirin 81 mg DAILY PO 08/16/24 10:00 08/16/24 09:17 81 MG Clopidogrel Bisulfate 75 mg DAILY PO 08/16/24 10:00 08/16/24 09:18 75 MG Enalapril Maleate 2.5 mg DAILY PO 08/15/24 10:00 08/16/24 09:18 2.5 MG Acetaminophen 650 mg Q6HP PRN PO 08/14/24 17:30 Diagnostic Test (Pha) 1 strip Q6HR 08/14/24 18:00 08/16/24 06:15 1 STRIP Dextrose 50 ml UD PRN IV 08/14/24 17:45 Ceftriaxone Sodium 50 ml @ 100 mls/hr DAILY@09 IV 08/15/24 13:00 08/16/24 08:26 100 MLS/HR Atorvastatin Calcium 40 mg HS PO 08/15/24 22:00 08/15/24 21:48 40 MG Insulin Glargine 12 units BID SC 08/15/24 12:30 08/16/24 09:30 12 UNITS Insulin Human Lispro Please change to Humalog ACHS SC 08/15/24 17:00 08/16/24 06:11 3 UNITS Insulin Human Lispro 8 units AC SC 08/15/24 17:00 08/16/24 06:12 8 UNITS Laboratory Results Laboratory Tests 08/16/24 06:00 Chemistry Test 08/16/24 06:00 Calcium Level 9.2 mg/dL (8.7-10.4) Labs and/or images reviewed: Labs reviewed by me, Image(s) reviewed by me Assessment/Plan Assessment/Plan Impression: -STEMI involving LAD -diabetes mellitus, uncontrolled, medication noncompliance -obesity -leukocytosis, probable sirs -dyslipidemia -primary hypertension -nonsustained ventricular tachycardia Plan: Events: Patient has a nonsustained runs of VT. Potassium 3.0. -potassium replete -check magnesium -continue dual antiplatelet therapy with Plavix -continue metoprolol -add statin -continue regular insulin sliding scale, consider adding metformin tomorrow -repeat labs in a.m. -reassess for discharge in a.m. Total time spent with patient discussing and formulating plan of care: 35 minutes. This medical document was created using an electronic medical record system with [employer] dictation system. Although this document has been carefully reviewed, there may still be some phonetic and typographical errors. These areas are purely typographical due to imperfections of the software programs, and do not reflect any compromise in the patient's medical care. Plan discussed with: Patient, Other (RN) My Orders Orders - JOSE MARIA CAZARES [employer] Procedure Category Date Status Time Atorvastatin (Lipitor) PHA 08/15/24 In Process 22:00 Ceftriaxone 1gm/50ml PHA 08/15/24 In Process D5w (Rocephin) 13:00 Potassium Effervesent PHA 08/16/24 Logged Tab (Klor-Con/Ef) 10:00 Potassium LAB 08/16/24 Logged 13:00 Date of Service: Aug 16, 2024 Billing Provider: JOSE MARIA CAZARES NP Common Visit Codes: [id number] INP/OBS CARE(HIGH) JOSE MARIA CAZARES NP Aug 16, 2024 10:08
[2024-08-16] MEDS: POTASSIUM EFFERVESENT TAB 25 MEQ PO ONE (10:27)
--- NOTE | 2024-08-16 15:25 | DVHPN2 ---
Progress Note - Dictate Date Seen: Aug 16, 2024 Medical Necessity Reason Pt with a Central, PICC or Fol: No Subjective Patient was seen and evaluated in follow up. No overnight events. Patient is resting in bed. WBC 11.6. K 3.0. Electrolytes are being replaced. Echocardiogram is pending. Telemetry reviewed. vital signs Vital Sign Date Time Temp Pulse Resp B/P (MAP) Pulse Ox O2 Delivery O2 Flow Rate FiO2 08/16/24 13:07 98.9 92 16 102/56 (71) 97 98.9 08/16/24 08:00 Room Air* 0 21 Total Intake and Output 08/15/24 08/15/24 08/16/24 15:00 23:00 07:00 Intake Total 1000 ml 800 ml Output Total 250 ml Balance 1000 ml 550 ml medications Current Medications Medications Dose Ordered Sig/John Route Start Time Stop Time Status Last Admin Dose Admin Ondansetron HCl 4 mg Q4HP PRN IV 08/14/24 15:30 08/14/24 19:58 4 MG Sodium Chloride 10 ml Q8HR IV 08/14/24 22:00 08/16/24 13:55 10 ML Nitroglycerin 0.4 mg Q5M PRN SL 08/14/24 17:30 Metoprolol Tartrate 25 mg BID PO 08/14/24 22:00 08/16/24 09:18 25 MG Aspirin 81 mg DAILY PO 08/16/24 10:00 08/16/24 09:17 81 MG Clopidogrel Bisulfate 75 mg DAILY PO 08/16/24 10:00 08/16/24 09:18 75 MG Enalapril Maleate 2.5 mg DAILY PO 08/15/24 10:00 08/16/24 09:18 2.5 MG Acetaminophen 650 mg Q6HP PRN PO 08/14/24 17:30 Diagnostic Test (Pha) 1 strip Q6HR 08/14/24 18:00 08/16/24 12:15 1 STRIP Dextrose 50 ml UD PRN IV 08/14/24 17:45 Ceftriaxone Sodium 50 ml @ 100 mls/hr DAILY@09 IV 08/15/24 13:00 08/16/24 08:26 100 MLS/HR Atorvastatin Calcium 40 mg HS PO 08/15/24 22:00 08/15/24 21:48 40 MG Insulin Glargine 12 units BID SC 08/15/24 12:30 08/16/24 09:30 12 UNITS Insulin Human Lispro Please change to Humalog ACHS SC 08/15/24 17:00 08/16/24 12:19 8 UNITS Insulin Human Lispro 8 units AC SC 08/15/24 17:00 08/16/24 12:19 8 UNITS objective GENERAL: Alert and oriented x 3. No acute distress. EYES: PERRL, EOMI. Anicteric. HENT: Moist mucous membranes. LUNGS: Clear to auscultation bilaterally. CARDIOVASCULAR: Regular rate and rhythm. ABDOMEN: Soft, nontender and nondistended. EXTREMITIES: No edema. NEUROLOGIC: No focal neurological deficits. SKIN: Warm, dry. laboratory and microbiology Laboratory Tests 08/16/24 13:07 08/16/24 06:00 Test 08/16/24 06:00 Range/Units Serum Glucose 154 H 74-106 mg/dL Problem List STEMI. Chest pain. CAD. Pulmonary arterial hypertension. Abdominal pain with nausea and vomiting. IDDM. Assessment/Plan Continued all current supportive medical care. Echocardiogram. Aspirin, Lipitor, Plavix, Metoprolol. IV antibiotics as ordered. Vasotec Nitro SL. Additional plan as per the hospital course. Plan discussed with: Patient MARIEL MERLOS MD Aug 16, 2024 15:25
--- NOTE | 2024-08-16 19:44 | DVHPN2 ---
Progress Note - Dictate Date Seen: Aug 16, 2024 Medical Necessity Reason Pt with a Central, PICC or Fol: No Subjective BG improving, no acute complaints. vital signs Vital Sign Date Time Temp Pulse Resp B/P (MAP) Pulse Ox O2 Delivery O2 Flow Rate FiO2 08/16/24 17:00 98.2 84 17 112/56 (74) 97 98.2 08/16/24 08:00 Room Air* 0 21 Total Intake and Output 08/15/24 08/15/24 08/16/24 15:00 23:00 07:00 Intake Total 1000 ml 800 ml Output Total 250 ml Balance 1000 ml 550 ml medications Current Medications Medications Dose Ordered Sig/John Route Start Time Stop Time Status Last Admin Dose Admin Ondansetron HCl 4 mg Q4HP PRN IV 08/14/24 15:30 08/14/24 19:58 4 MG Sodium Chloride 10 ml Q8HR IV 08/14/24 22:00 08/16/24 13:55 10 ML Nitroglycerin 0.4 mg Q5M PRN SL 08/14/24 17:30 Metoprolol Tartrate 25 mg BID PO 08/14/24 22:00 08/16/24 09:18 25 MG Aspirin 81 mg DAILY PO 08/16/24 10:00 08/16/24 09:17 81 MG Clopidogrel Bisulfate 75 mg DAILY PO 08/16/24 10:00 08/16/24 09:18 75 MG Enalapril Maleate 2.5 mg DAILY PO 08/15/24 10:00 08/16/24 09:18 2.5 MG Acetaminophen 650 mg Q6HP PRN PO 08/14/24 17:30 Diagnostic Test (Pha) 1 strip Q6HR 08/14/24 18:00 08/16/24 17:16 1 STRIP Dextrose 50 ml UD PRN IV 08/14/24 17:45 Ceftriaxone Sodium 50 ml @ 100 mls/hr DAILY@09 IV 08/15/24 13:00 08/16/24 08:26 100 MLS/HR Atorvastatin Calcium 40 mg HS PO 08/15/24 22:00 08/15/24 21:48 40 MG Insulin Glargine 12 units BID SC 08/15/24 12:30 08/16/24 09:30 12 UNITS Insulin Human Lispro Please change to Humalog ACHS SC 08/15/24 17:00 4/7/25 17:19 4 UNITS Insulin Human Lispro 8 units AC SC 08/15/24 17:00 08/16/24 17:18 8 UNITS objective Gen - no acute distress HEENT - no lymphadenopathy CV - RRR, no m/r/g Resp - CTAB Ext - no edema laboratory and microbiology Laboratory Tests 08/16/24 13:07 08/16/24 06:00 Test 08/16/24 06:00 Range/Units Serum Glucose 154 H 74-106 mg/dL Assessment/Plan # Uncontrolled type II DM with hyperglycemia # STEMI # CAD # HTN # HLD - Continue glargine 12 units bid - Continue lispro 8 units tidac - High intensity SSI tidac, qhs - POC BG monitoring tidac, qhs - Hypoglycemia protocol Plan discussed with: Patient RUBI BENTLEY MD Aug 16, 2024 19:44
--- NOTE | 2024-08-16 23:20 | DVHSR ---
APPROVED REPORT EXAM: Two-dimensional and M-mode echocardiogram with Doppler and color Doppler. Blood Pressure: 126/65 mmHg INDICATION STEMI RISK FACTORS Height: 60, Weight: 147 DIMENSIONS LVDd4.6 (3.8-5.7cm)LA (2D)4.1 (1.9-4.0cm)Aortic Root3.3 (2.0-3.7cm) LVDs3.0 (2.5-4.0cm)LA (MM) (1.9-4.0cm)Aortic Cusp Exc1.8 (1.5-2.0cm) EF (%) 65.0 (55-70%)Rt. Atrium3.6 (1.9-4.0cm)Asc. Aorta cm IVSd1.0 (0.7-1.1cm)RV (D) (1.8-2.4cm) PWd1.4 (0.7-1.1cm) Mitral Valve MitralMitral Stenosis E wave0.79m/sMV Mean GR.2mmHg A wave1.15m/sMV Peak GR.44mmHg E/A ratio0.72D MVAcm2 DECEL [id number] 1/2 Dypf46st IVRTmsDop MVA4.86cm2 Aortic Valve Aortic ValveAortic Stenosis V11.10m/Eduarda Mean GR.5mmHg V21.61m/Eduarda Peak GR.10mmHg LVOT Diameter2.1 (1.8-2.4cm)Doppler AVA2.37cm2 Pulmonic Valve V21.00m/s Tricuspid Valve TR Velocity2.62m/s [id number] Conclusion LV EF IS 65% AND IS NORMAL NORMAL VALVES NO EFFUSION NORMAL RV FUNCTION
[2024-08-17] VITALS (7 sets, daily range): BP systolic 128–142; BP diastolic 59–78; PULSE 73–95; RESP 17–19; TEMP 98.2–99.5; O2SAT 95–98
[2024-08-17 08:07] LABS: Anion Gap 9 (5-15); Calcium 8.9 mg/dL (8.7-10.4); Carbon Dioxide 27 mmol/L (20-31); Chloride 106 mmol/L (98-107); Sodium 142 mmol/L (136-145)
[2024-08-17 08:09] LABS: Potassium 3.2 mmol/L (3.5-5.1)
[2024-08-17 08:13] LABS: Blood Urea Nitrogen 12 mg/dL (9-23)
[2024-08-17 08:14] LABS: Glucose 169 mg/dL (74-106); Magnesium 1.8 mg/dL (1.6-2.6)
[2024-08-17] MEDS ORDERED: CLOP75TA70 PO (12:40)
[2024-08-17] MEDS ORDERED: MET25T PO (12:40)
[2024-08-17] MEDS ORDERED: ENAL1TAB42 PO (12:40)
[2024-08-17] MEDS ORDERED: ATOR20TA50 PO (12:40)
[2024-08-17] MEDS ORDERED: ASPI-325 PO (12:40)
[2024-08-17] MEDS ORDERED: METF-490 PO (12:42)
[2024-08-17] MEDS: POTASSIUM CHL 20 Meq TABLET PO ONE (14:59)
--- NOTE | 2024-08-17 16:06 | DVHPN2 ---
Progress Note - Dictate Date Seen: Aug 17, 2024 Medical Necessity Reason Pt with a Central, PICC or Fol: No Subjective Well controlled stable dysglycemia. NAEO. No complaints. vital signs Vital Sign Date Time Temp Pulse Resp B/P (MAP) Pulse Ox O2 Delivery O2 Flow Rate FiO2 08/17/24 13:46 98.2 73 19 96 08/17/24 13:00 131/59 (83) 08/17/24 08:00 Room Air* 0 21 Total Intake and Output 08/16/24 08/16/24 08/17/24 14:59 22:59 06:59 Intake Total 50 ml 1050 ml 525 ml Balance 50 ml 1050 ml 525 ml medications Current Medications Medications Dose Ordered Sig/John Route Start Time Stop Time Status Last Admin Dose Admin Ondansetron HCl 4 mg Q4HP PRN IV 08/14/24 15:30 08/14/24 19:58 4 MG Sodium Chloride 10 ml Q8HR IV 08/14/24 22:00 08/17/24 14:59 10 ML Nitroglycerin 0.4 mg Q5M PRN SL 08/14/24 17:30 Metoprolol Tartrate 25 mg BID PO 08/14/24 22:00 08/17/24 09:55 25 MG Aspirin 81 mg DAILY PO 08/16/24 10:00 08/17/24 09:52 81 MG Clopidogrel Bisulfate 75 mg DAILY PO 08/16/24 10:00 08/17/24 09:54 75 MG Enalapril Maleate 2.5 mg DAILY PO 08/15/24 10:00 08/17/24 09:55 2.5 MG Acetaminophen 650 mg Q6HP PRN PO 08/14/24 17:30 Diagnostic Test (Pha) 1 strip Q6HR 08/14/24 18:00 08/17/24 11:48 1 STRIP Dextrose 50 ml UD PRN IV 08/14/24 17:45 Ceftriaxone Sodium 50 ml @ 100 mls/hr DAILY@09 IV 08/15/24 13:00 08/17/24 09:15 100 MLS/HR Atorvastatin Calcium 40 mg HS PO 08/15/24 22:00 08/16/24 22:22 40 MG Insulin Glargine 12 units BID SC 08/15/24 12:30 08/17/24 09:56 12 UNITS Insulin Human Lispro Please change to Humalog ACHS [place] 08/15/24 17:00 08/17/24 11:47 4 UNITS Insulin Human Lispro 8 units AC SC 08/15/24 17:00 08/17/24 11:48 8 UNITS objective Gen - no acute distress HEENT - no lymphadenopathy CV - RRR, no m/r/g Resp - CTAB Ext - no edema laboratory and microbiology Laboratory Tests 08/17/24 06:14 08/16/24 06:00 Test 08/17/24 06:14 Range/Units Serum Glucose 169 H 74-106 mg/dL Assessment/Plan # Uncontrolled type II DM with hyperglycemia # STEMI # CAD # HTN # HLD - Continue glargine 12 units bid - Continue lispro 8 units tidac - High intensity SSI tidac, qhs - POC BG monitoring tidac, qhs - Hypoglycemia protocol Plan discussed with: Patient RUBI BENTLEY MD Aug 17, 2024 16:05
--- NOTE | 2024-08-17 18:30 | DVHPN2 ---
Progress Note - Dictate Date Seen: Aug 17, 2024 Medical Necessity Reason Pt with a Central, PICC or Fol: No Subjective Patient was seen and evaluated in follow up. Patient has no new complaints at this time. Echocardiogram shows an EF of 65%. Patient is cardiac stable for discharge. Telemetry reviewed. vital signs Vital Sign Date Time Temp Pulse Resp B/P (MAP) Pulse Ox O2 Delivery O2 Flow Rate FiO2 08/17/24 17:00 98.5 87 19 139/67 (91) 97 98.5 08/17/24 08:00 Room Air* 0 21 Total Intake and Output 08/16/24 08/16/24 08/17/24 15:00 23:00 07:00 Intake Total 50 ml 1050 ml 525 ml Balance 50 ml 1050 ml 525 ml objective GENERAL: Alert and oriented x 3. No acute distress. EYES: PERRL, EOMI. Anicteric. HENT: Moist mucous membranes. LUNGS: Clear to auscultation bilaterally. CARDIOVASCULAR: Regular rate and rhythm. ABDOMEN: Soft, nontender and nondistended. EXTREMITIES: No edema. NEUROLOGIC: No focal neurological deficits. SKIN: Warm, dry. laboratory and microbiology Laboratory Tests 08/17/24 06:14 08/16/24 06:00 Test 08/17/24 06:14 Range/Units Serum Glucose 169 H 74-106 mg/dL Problem List STEMI. Chest pain. CAD. Pulmonary arterial hypertension. Abdominal pain with nausea and vomiting. IDDM. Assessment/Plan Continued all current supportive medical care. Aspirin, Lipitor, Plavix, Metoprolol. IV antibiotics as ordered. Vasotec Nitro SL. Additional plan as per the hospital course. Dietary Evaluation Review Comments: 1. Continue CHO Consistent diet, increase to 60 gm/meal to meet est. needs 2. Adjust insulin as needed to achieve excellent glycemic control 3. Would benefit from outpatient DM counseling with [facility] for continued support Expected Outcomes/Goals: Improved glycemic control, DM lab values. Plan discussed with: Patient MARIEL MERLOS MD Aug 17, 2024 18:30
== END 2024-08-17 17:23 | disposition home or self-care (01) | DRG 174 ==
LOC: ER 15:05 → OVERFLOW 15:27 → TELE-EAST 18:50
PROVIDERS: ADMIT Hospitalist; ATTEND Hospitalist
PROC: 02C13ZZ Extirpation of Matter from Coronary Artery, Two Arteries, Percutaneous Approach (ICD-10-PCS; principal; 2024-08-14)
PROC: 4A023N7 Measurement of Cardiac Sampling and Pressure, Left Heart, Percutaneous Approach (ICD-10-PCS; 2024-08-14)
PROC: B211YZZ Fluoroscopy of Multiple Coronary Arteries using Other Contrast (ICD-10-PCS; 2024-08-14)
PROC: B215YZZ Fluoroscopy of Left Heart using Other Contrast (ICD-10-PCS; 2024-08-14)
PROC: 04HY32Z Insertion of Monitoring Device into Lower Artery, Percutaneous Approach (ICD-10-PCS; 2024-08-14)
PROC: B41FYZZ Fluoroscopy of Right Lower Extremity Arteries using Other Contrast (ICD-10-PCS; 2024-08-14)
PROC: 3E073PZ Introduction of Platelet Inhibitor into Coronary Artery, Percutaneous Approach (ICD-10-PCS; 2024-08-14)
PROC: B240ZZ3 Ultrasonography of Single Coronary Artery, Intravascular (ICD-10-PCS; 2024-08-14)
PROC: 027034Z Dilation of Coronary Artery, One Artery with Drug-eluting Intraluminal Device, Percutaneous Approach (ICD-10-PCS; 2024-08-14)
DX: I21.09 ST elevation (STEMI) myocardial infarction involving other coronary artery of anterior wall (principal); I27.21 Secondary pulmonary arterial hypertension; I47.20 Ventricular tachycardia, unspecified; D72.829 Elevated white blood cell count, unspecified; E11.65 Type 2 diabetes mellitus with hyperglycemia; E66.9 Obesity, unspecified; E78.5 Hyperlipidemia, unspecified; I10 Essential (primary) hypertension; I25.10 Atherosclerotic heart disease of native coronary artery without angina pectoris; I25.2 Old myocardial infarction; Z79.4 Long term (current) use of insulin; Z79.82 Long term (current) use of aspirin; Z82.49 Family history of ischemic heart disease and other diseases of the circulatory system; Z91.148 Patient's other noncompliance with medication regimen for other reason; Z90.49 Acquired absence of other specified parts of digestive tract; Z68.31 Body mass index [BMI] 31.0-31.9, adult
CPT/HCPCS: 36415; 71045; 80048; 80053; 80061; 82962; 83036; 83735; 84132; 84484; 85007; 85014; 85018; 85025; 85027; 85610; 85730; 92934; 92941; 93005; 93306; 93458; 96372; 96374; 99152; 99291; G0378; J1815; J2250; J2405; Q9967